=== PATIENT | female | born 1975 | race Caucasian/White ===

== ENCOUNTER 2016-12-03 23:09 | Emergency (ER) | END 2016-12-04 01:45 | disposition home or self-care (01) | DX: R10.2 Pelvic and perineal pain (principal); N39.0 Urinary tract infection, site not specified; Z87.891 Personal history of nicotine dependence | CPT/HCPCS: 76830; 76856; 81003; Z7502 ==

== ENCOUNTER 2017-12-12 08:17 | Emergency (ER) | END 2017-12-12 12:08 | disposition home or self-care (01) ==